=== PATIENT | male | born 1965 | race African-American/Black ===

== ENCOUNTER 2020-02-11 13:18 | Emergency (ER) | payer OTHER ==
[~2020-02-11] VITALS: Ht 182.9 cm; Wt 127.0 kg
[2020-02-11 13:38] VITALS: BP 159/98
--- NOTE | 2020-02-11 13:38 | NUR ---
ED Nurse Note: Pt walked in to ED c/o SOB x2 weeks. Pt reports streak of dark blood in the phlegm. Pt reports mild chest pain exacerbated by deep breathes. No fever/ chills. AAOx4, verbally reponsive. Breathing even and unlabored, on room air.
--- NOTE | 2020-02-11 14:26 | Emergency Room Report ---
History of Present Illness General Chief Complaint: Dyspnea/Respdistress Source: Patient Present Illness HPI 55-year-old male with no known medical history here complaining of 2 weeks of cough and congestion with minimal shortness of breath. Patient had a Covid test done 3 days ago and tested negative. Complains of green phlegm which appeared to be blood-tinged this morning. Denies any hemoptysis profusely. Denies fever chills, diarrhea, loss of taste and smell. Has not taken medication for symptom relief. Patient denies tobacco smoke, drug use, alcohol intake. Sitting comfortably statting 94% on room air however no distress. Allergies: Coded Allergies: No Known Allergies (Unverified , 02/11/20) COVID-19 Screening Contact w/high risk pt: No Experienced COVID-19 symptoms?: No COVID-19 Testing performed [employer]: Yes - 12/26/19 COVID-19 Screening: Negative COVID-19 COVID-19 Testing Source: [facility] Patient History Past Medical History: see triage record Past Surgical History: none Pertinent Family History: none Immunizations: UTD Reviewed Nursing Documentation: PMH: Agreed; PSxH: Agreed Nursing Documentation-PMH Hx Hypertension: Yes Review of Systems All Other Systems: negative except mentioned in HPI Physical Exam Vital Signs Date Time Temp Pulse Resp B/P (MAP) Pulse Ox O2 Delivery O2 Flow Rate FiO2 02/11/20 13:32 99.0 75 20 159/98 (118) 94 Room Air Sp02 EP Interpretation: abnormal - O2 94% RA General Appearance: no apparent distress, alert, GCS 15, non-toxic Head: normocephalic, atraumatic ENT: hearing grossly normal, no angioedema, normal voice Neck: full range of motion, supple/symm/no masses Respiratory: no respiratory distress, no retraction, no accessory muscle use Cardiovascular #1: regular rate, rhythm, no edema Gastrointestinal: non-distended Musculoskeletal: back normal Neurologic: alert, motor strength/tone normal, oriented x3, sensory intact, responsive, speech normal Psychiatric: judgement/insight normal, memory normal, mood/affect normal, no suicidal/homicidal ideation Skin: no rash Lymphatic: no adenopathy Medical Decision Making PA Attestation All my diagnosis and treatment plans were reviewed ad discussed with my supervising physician Dr. Shaw Diagnostic Impression: Primary Impression: Bronchitis ER Course 55-year-old male with no known medical history here complaining of 2 weeks of cough and congestion with minimal shortness of breath. Patient had a Covid test done 3 days ago and tested negative. Complains of green phlegm which appeared to be blood-tinged this morning. Denies any hemoptysis profusely. Denies fever chills, diarrhea, loss of taste and smell. Has not taken medication for symptom relief. Patient denies tobacco smoke, drug use, alcohol intake. Sitting comfortably statting 94% on room air however no distress. Ddx considered but are not limited to: bronchitis, PNA, URI viral, bacterial bronchitis, coronavirus Vital signs: are WNL, pt. is afebrile H&PE are most consistent with: Bronchitis ORDERS: Chest x-ray, azithromycin, prednisone, Phenergan, albuterol ED INTERVENTIONS: None required at this time. DISCHARGE: At this time pt. is stable for d/c to home. Will provide printed patient care instructions, and any necessary prescriptions. Care plan and follow up instructions have been discussed with the patient prior to discharge. Take medication as directed, follow primary care provider, secondary to COVID-19 swab today, advised patient to quarantine himself. If worsening symptoms return to the emergency room Chest X-Ray Diagnostic Results Chest X-Ray Diagnostic Results : Chest X-Ray Ordered: Yes # of Views/Limited/Complete: 1 View Indication: Shortness of Breath EP Interpretation: Yes PA Xray: Interpretation reviewed, by supervising MD, and agrees with findings. Interpretation: no consolidation, no effusion, no pneumothorax Impression: No acute disease Electronically Signed by: Matthew Ferrari PA-C Last Vital Signs Date Time Temp Pulse Resp B/P (MAP) Pulse Ox O2 Delivery O2 Flow Rate FiO2 02/11/20 13:38 99.0 75 20 159/98 94 Room Air Disposition: HOME, SELF-CARE Condition: Stable Scripts Albuterol Sulfate (VENTOLIN HFA) 18 Gm Hfa.aer.ad 2 PUFFS INH EVERY 6 HOURS, #18 GM 0 Refills Prov: Matthew Gerber 02/11/20 Promethazine Hcl (PROMETHAZINE HCL*) 6.25 Mg/5 Ml Syrup 5 ML ORAL Q8H, #120 ML 0 Refills Prov: Matthew Gerber 02/11/20 Prednisone* (PREDNISONE*) 20 Mg Tablet 40 MG ORAL DAILY for 5 Days, #10 TAB Prov: Matthew Gerber 02/11/20 Azithromycin* (ZITHROMAX*) 250 Mg Tablet 250 MG ORAL DAILY, #6 TAB 0 Refills Take two tables once daily for 1 day, then one tablet once daily for 4 days. Prov: Matthew Gerber 02/11/20 Referrals: [facility],REFERR[facility] (PCP) Patient Instructions: Acute Bronchitis, [id number], Shortness of Breath, Time-mh-Vert Additional Instructions: Take medication as directed, quarantine, follow primary care provider, if worsening symptoms return to the emergency room Matthew Gerber Feb 11, 2020 14:26
[2020-02-11] MEDS ORDERED: PROMETHAZI6.25 MG/1 ORAL (14:27)
[2020-02-11] MEDS ORDERED: PREDNISONE20 MG ORAL (14:27)
[2020-02-11] MEDS ORDERED: VENTOLIN HFA18 GM INH (14:27)
[2020-02-11] MEDS ORDERED: ZITHROMAX250 MG ORAL (14:27)
[2020-02-11 14:33] VITALS: BP 133/72
--- NOTE | 2020-02-11 14:33 | NUR ---
ED Nurse Note: Pt cleared by ERMD for discharge. DC instructions/prescription was given and explained to pt and verbalized understanding of teachings. All medical deviecs such as ID band removed. Pt is AAO x4, ambulatory and left with all personal belongings.
--- NOTE | 2020-02-11 15:11 | Diagnostic Imaging Report ---
Indication: Shortness of breath Technique: One view of the chest Comparison: none Findings: There are bilateral peripheral streaky an patchy infiltrates in a peribronchovascular distribution. Heart size is normal. The pleural spaces are clear. Impression: Bilateral infiltrates, likely pneumonia, possibly viral
== END 2020-02-11 14:33 | disposition home or self-care (01) ==
LOC: EMR 13:48
DX: J40 Bronchitis, not specified as acute or chronic (principal); I10 Essential (primary) hypertension
CPT/HCPCS: 71045; U0004; Z7502; 99283